=== PATIENT | male | born 1970 | race Caucasian/White ===

== ENCOUNTER 2020-04-23 18:15 | Emergency (ER) | payer OTHER ==
[~2020-04-23] VITALS: Ht 172.7 cm; Wt 60.0 kg
--- NOTE | 2020-04-23 18:22 | NUR ---
Pt RIGOBERTO MALONE from [facility], in custody, accompanied by 2 deputies. Pt sent to ER for eval of dental abscess. Pt very hostile with this RN. Pt hypotensive per EMS, however pt refusing to allow this RN to assess his BP. Pt refusing to follow staff instruction, refusing to allow this RN to assess pt's temperature. Pt attempting to remove continuous O2 monitor, encouraged to leave it in place. Pt with swelling to R side of face, unknown duration as pt will not answer this RN's questions. Pt speaking in full sentences, resp even and unlabored. Deputies remain at bedside.
--- NOTE | 2020-04-23 18:58 | NUR ---
REPORT RECIEVED FROM ANA PABLO. THIS RN TO ASSUME CARE OF PT.
[2020-04-23] MEDS ORDERED: CLINDAMYCIN 150 MG CAPSULE PO ONE (19:00)
--- NOTE | 2020-04-23 19:35 | NUR ---
pt medicated and given a snack prior to medication. Pt still refusing vitals. [place] at bedside
== END 2020-04-23 19:44 | disposition home or self-care (01) ==
LOC: ED 18:52
DX: K04.7 Periapical abscess without sinus (principal); R22.0 Localized swelling, mass and lump, head; K08.89 Other specified disorders of teeth and supporting structures; F17.200 Nicotine dependence, unspecified, uncomplicated
CPT/HCPCS: 99283